=== PATIENT | male | born 1985 | race African-American/Black ===

== ENCOUNTER 2016-10-26 03:18 | Emergency (ER) | payer OTHER ==
[2016-10-26 03:29] VITALS: BP 139/84
--- NOTE | 2016-10-26 03:35 | ED Physician Documentation ---
PD HPI HEENT - Stated complaint Stated Complaint: CONGESTION,FEVER - Chief complaint Chief Complaint: Resp - History obtained from History obtained from: Patient - History of Present Illness Timing - onset: How many weeks ago (2) Timing - duration: Weeks Timing - details: Gradual onset, Waxing and waning Location: Sinuses Associated symptoms: Congestion (sinus and chest congestion), Rhinorrhea, Cough. No: Fever Recently seen: Clinic (evaluated last week at [facility], rx ibuprofen and Sudafed) - Additional information Additional information: 2 weeks of sinus and chest congestion, productive cough, bilateral (L>R) ear pain. symptoms have become noticeably worse x 2-3 days Review of Systems Constitutional: denies: Fever Ears: reports: Ear pain Nose: reports: Rhinorrhea / runny nose, Congestion, Sinus pressure / pain Throat: denies: Sore throat Respiratory: reports: Cough. denies: Dyspnea GI: denies: Abdominal Pain PD PAST MEDICAL HISTORY - Past Medical History Past Medical History: No - Past Surgical History Past Surgical History: No - Present Medications Home Medications: Ambulatory Orders Medication Instructions Recorded Confirmed Amox/Clav 875/125 [Augmentin] 1 each PO Q12H #19 tablet 10/26/16 Ibuprofen 1 mg PO Q6HR PRN 10/26/16 10/26/16 Pseudoephedrine [Sudafed] 30 mg PO Q4HR PRN 10/26/16 10/26/16 - Allergies Allergies/Adverse Reactions: Allergies Allergy/AdvReac Type Severity Reaction Status Date / Time No Known Drug Allergies Allergy Verified 10/26/16 03:22 - Social History Does the pt smoke?: No Smoking Status: Never smoker Does the pt drink ETOH?: No Does the pt have substance abuse?: No - Immunizations Immunizations are current?: Yes - POLST Patient has POLST: No PD ED PE NORMAL - Vitals Vital signs reviewed: Yes - General General: Alert and oriented X 3, No acute distress, Well developed/nourished - HEENT HEENT: Moist mucous membranes, Pharynx benign, Other (mild erythema left TM; normal right TM) - Neck Neck: Supple, no meningeal sign - Cardiac Cardiac: RRR, No murmur - Respiratory Respiratory: No respiratory distress, Clear bilaterally Results - Vitals Vitals: Vital Signs - 24 hr 10/26/16 03:20 Temperature 37.1 C Heart Rate 89 Respiratory 18 Rate Blood Pressure 139/84 H O2 Saturation 98 Oxygen O2 Source Room air PD MEDICAL DECISION MAKING - ED course Complexity details: considered differential, d/w patient Departure - Departure Disposition: 01 Home, Self Care Clinical Impression: Bronchitis Sinusitis Qualifiers: Sinusitis location: unspecified location Chronicity: acute Recurrence: non- recurrent Qualified Code(s): J01.90 - Acute sinusitis, unspecified Condition: Good Instructions: ED Sinusitis Abx Tx Follow-Up: [facility] [Provider Group] Prescriptions: Amox/Clav 875/125 [Augmentin] 1 each PO Q12H #19 tablet Discharge Date/Time: 10/26/16 04:04
[2016-10-26] MEDS ORDERED: AMOX/CLAV 875 MG/125 MG TABLET PO STA (03:55)
[2016-10-26] MEDS ORDERED: AMOX/CLAV 875 MG/125 MG TABLET PO ONE (03:57)
== END 2016-10-26 04:04 | disposition home or self-care (01) ==
LOC: ED 03:18
DX: J40 Bronchitis, not specified as acute or chronic (principal); J01.90 Acute sinusitis, unspecified
CPT/HCPCS: 99283; A9270

== ENCOUNTER 2017-05-18 08:10 | Emergency (ER) | payer OTHER ==
[2017-05-18] MEDS ORDERED: SODIUM CHLORIDE 0.9% 1,000 ML IV ONE ×2 (08:37→09:22)
[2017-05-18 09:01] LABS: BASOPHILS % (AUTO) 0.2 %; EOSINOPHILS # (AUTO) 0.1 10^3/uL (0.0-0.7); EOSINOPHILS % (AUTO) 0.9 %; HCT - HEMATOCRIT 43.7 % (42.0-52.0); HGB - HEMOGLOBIN 14.5 g/dL (14.0-18.0); MEAN CORPUSCULAR HEMOGLOBIN 26.9 pg (27.0-31.0); MEAN CORPUSCULAR HGB CONC 33.3 g/dL (32.0-36.0); MEAN CORPUSCULAR VOLUME 80.9 fL (80.0-94.0); MEAN PLATELET VOLUME 8.7 fL (7.4-11.4); MONOCYTES # (AUTO) 0.6 10^3/uL (0.0-1.0); MONOCYTES % (AUTO) 8.7 %; NEUTROPHILS # (AUTO) 4.8 10^3/uL (1.5-6.6); NEUTROPHILS % (AUTO) 74.2 %; RED CELL DISTRIBUTION WIDTH 13.5 % (12.0-15.0); UNCORRECTED WHITE BLOOD COUNT 6.4 x10^3/uL; WHITE BLOOD COUNT 6.4 x10^3/uL (4.8-10.8)
[2017-05-18] MEDS ORDERED: KETOROLAC 60 MG/2 ML VIAL IVP STA (09:06)
[2017-05-18] MEDS ORDERED: ONDANSETRON 4 MG/2 ML VIAL IVP STA (09:06)
--- NOTE | 2017-05-18 09:08 | ED Physician Documentation ---
History of Present Illness - Stated complaint Stated Complaint: VOMITING,DIARRHEA - Chief complaint Chief Complaint: Abd Pain - Additonal information Additional information: hx from pt healthy 31 male no travel no bad food his family was sick with NVD then he got the same has NVD, myalgia, no sig MOSS, no cough, no blood in vomit or diarrhea, fever to 103 Review of Systems Constitutional: reports: Fever, Myalgias Respiratory: denies: Cough GI: reports: Nausea, Vomiting, Diarrhea. denies: Hematemesis, Bloody / black stool Endocrine: denies: Easy bruising / bleeding Immunocompromised: denies: Immunocompromised PD PAST MEDICAL HISTORY - Past Surgical History Past Surgical History: No - Present Medications Home Medications: Ambulatory Orders Medication Instructions Recorded Confirmed Loperamide [Imodium] 2 mg PO ONCE PRN #10 capsule 05/18/17 Ondansetron Odt [Zofran] 4 mg TL Q6H PRN #10 tablet 05/18/17 - Allergies Allergies/Adverse Reactions: Allergies Allergy/AdvReac Type Severity Reaction Status Date / Time No Known Drug Allergies Allergy Verified 05/18/17 08:16 - Social History Does the pt smoke?: No Smoking Status: Never smoker Does the pt drink ETOH?: No Does the pt have substance abuse?: No - Immunizations Immunizations are current?: Yes - POLST Patient has POLST: No PD ED PE NORMAL - Vitals Vital signs reviewed: Yes - General General: Alert and oriented X 3 - HEENT HEENT: PERRL - Neck Neck: Supple, no meningeal sign - Cardiac Cardiac: RRR - Respiratory Respiratory: No respiratory distress, Clear bilaterally - Abdomen Abdomen: Soft, Non tender - Derm Derm: Normal color - Neuro Neuro: Alert and oriented X 3 Results - Vitals Vitals: Vital Signs - 24 hr 05/18/17 05/18/17 08:13 09:08 Temperature 37.8 C H 36.6 C Heart Rate 91 80 Respiratory 18 16 Rate Blood Pressure 125/76 124/67 O2 Saturation 99 100 Oxygen O2 Source Room air - Labs Labs: Laboratory Tests 05/18/17 05/18/17 05/18/17 08:30 08:30 09:08 WBC 6.4 RBC 5.40 Hgb 14.5 Hct 43.7 MCV 80.9 MCH 26.9 L MCHC 33.3 RDW 13.5 Plt Count 136 MPV 8.7 Neut # 4.8 Lymph # 1.0 L [place] # 0.6 Eos # 0.1 Baso # 0.0 Absolute Nucleated RBC 0.00 Nucleated RBC % 0.0 Sodium 137 Potassium 3.2 L Chloride 100 L Carbon Dioxide 24 Anion Gap 13.0 BUN 10 Creatinine 1.0 Estimated GFR (MDRD) 107 Glucose 119 H Calcium 8.7 Total Bilirubin 1.3 H AST 24 ALT 18 Alkaline Phosphatase 78 Total Protein 7.2 Albumin 4.3 Globulin 2.9 Albumin/Globulin Ratio 1.5 Lipase 24 Urine Color Urine Clarity Urine pH Ur Specific [place] Urine Protein Urine Glucose (UA) Urine Ketones Urine Occult Blood Urine Nitrite Urine Bilirubin Urine Urobilinogen Ur Leukocyte Esterase Ur Microscopic Review Urine Culture Comments Influenza A (Rapid) Negative Influenza B (Rapid) Negative Influenza Types A,B Ag - 05/18/17 09:33 WBC RBC Hgb Hct MCV MCH MCHC RDW Plt Count MPV Neut # Lymph # [place] # Eos # Baso # Absolute Nucleated RBC Nucleated RBC % Sodium Potassium Chloride Carbon Dioxide Anion Gap BUN Creatinine Estimated GFR (MDRD) Glucose Calcium Total Bilirubin AST ALT Alkaline Phosphatase Total Protein Albumin Globulin Albumin/Globulin Ratio Lipase Urine Color YELLOW Urine Clarity CLEAR Urine pH 6.0 Ur Specific [place] 1.025 Urine Protein NEGATIVE Urine Glucose (UA) NEGATIVE Urine Ketones NEGATIVE Urine Occult Blood NEGATIVE Urine Nitrite NEGATIVE Urine Bilirubin NEGATIVE Urine Urobilinogen 0.2 (NORMAL) Ur Leukocyte Esterase NEGATIVE Ur Microscopic Review NOT INDICATED Urine Culture Comments NOT INDICATED Influenza A (Rapid) Influenza B (Rapid) Influenza Types A,B Ag Departure - Departure Disposition: 01 Home, Self Care Clinical Impression: Gastroenteritis Condition: Good Instructions: ED Gastroenteritis Non Infec, ED Fever Control Follow-Up: [facility] MD [Emergency Provider] - Prescriptions: Loperamide [Imodium] 2 mg PO ONCE PRN #10 capsule PRN Reason: Diarrhea Ondansetron Odt [Zofran] 4 mg TL Q6H PRN #10 tablet PRN Reason: Nausea / Vomiting Comments: Your blood work all came back fine except a slightly low potassium which we replaced. The urine test as fine The influenza swab was negative for the flu The stool cultures will take a few days to be resulted - we will call you if antibiotics are needed. In the mean time I have prescribed medications to ease your symptoms Forms: Activity restrictions
[2017-05-18 09:09] LABS: ALBUMIN/GLOBULIN RATIO 1.5 (1.0-2.2); BILIRUBIN,TOTAL 1.3 mg/dL (0.2-1.0); CALCIUM 8.7 mg/dL (8.5-10.3); POTASSIUM 3.2 mmol/L (3.5-5.0); TOTAL PROTEIN 7.2 g/dL (6.7-8.2)
[2017-05-18] MEDS ORDERED: ONDANSETRON 4 MG/2 ML VIAL ONE (09:18)
[2017-05-18] MEDS ORDERED: KETOROLAC 30 MG/ML VIAL ONE (09:18)
[2017-05-18 09:50] LABS: BILIRUBIN,URINE NEGATIVE (NEGATIVE)
[2017-05-18 09:57] LABS: UA CHARGE (STRIP ONLY) YES; UR CULTURE IF IND NOT INDICATED
[2017-05-18] MEDS ORDERED: POTASSIUM CHLORIDE 20 MEQ TABLET PO STA (11:21)
[2017-05-18 11:29] VITALS: BP 123/67
[2017-05-18] MEDS ORDERED: POTASSIUM CHLORIDE 20 MEQ TABLET PO ONE (11:43)
== END 2017-05-18 11:43 | disposition home or self-care (01) ==
LOC: ED 08:10
DX: K52.9 Noninfective gastroenteritis and colitis, unspecified (principal)
CPT/HCPCS: 36415; 80053; 81003; 83690; 85025; 87045; 87046; 87275; 87276; 96361; 96374; 96375; 99284; A9270; 81001; 87086